=== PATIENT | male | born 1965 | race Caucasian/White ===

== ENCOUNTER 2021-09-15 09:02 | Observation (INO) ==
[2021-09-15] MEDS ORDERED: SODIUM CHLORIDE 0.9% 1000ML 1,000 ML IV SCH (09:15)
[2021-09-15] MEDS ORDERED: MoRPHine SULFATE 10 MG/ML CARP/VIAL IV STA ×2 (09:17→12:01)
[2021-09-15] MEDS ORDERED: ONDANSETRON INJ 2 MG/ML 2 ML VIAL IV STA (09:17)
--- NOTE | 2021-09-15 09:32 | Emergency Department Note ---
Impression & Plan Acute cholecystitis, Abdominal pain, epigastric, Nausea & vomiting ED Provider Note CHIEF COMPLAINT: Epigastric abdominal pain HISTORY OF PRESENT ILLNESS: Allen Bonilla Jr. is a 55 year old male with history of dyslipidemia who presents to the Emergency Department via EMS for evaluation of persistent sharp pains to his epigastric region which he developed suddenly while he was laying in bed at 0600 this morning. Upon developing the pain, the patient became nauseous and dry heaved several times. The patient's drove him to [facility] but he states that they had to machine puller over on the way there so that he could vomit. While at [facility], the patient continued with severe pain and was very diaphoretic. At that time, his blood pressure was noted to be elevated in the 190s and as they were concerned about his symptoms, EMS was called and brought him to the ED for further evaluation. En route, IV access was established and they patient was given Toradol 15 mg and Zofran 4 mg with little improvement of his symptoms. Currently, he still notes moderate discomfort, though nothing seems to make his symptoms worse. When the patient initially developed the pain, he did note radiation into his back and neck, however this has since improved. He otherwise denies fevers, sore throat, chest pain, palpitations, shortness of breath or dyspnea. He did not have abdominal pain, nausea or vomiting prior to the time of onset today. He has been moving his bowels and urinating normally. The patient did eat Maori food that was only 2 days old yesterday but otherwise denies eating any abnormal/spoiled food. He denies experiencing similar symptoms in the past. He does not have any surgical history. REVIEW OF SYSTEMS: 10 systems were reviewed and were negative unless otherwise stated in HPI as above PHYSICAL EXAM: VITALS: Vitals are noted on the nurse's note and reviewed by myself. Hype rtensive, additional vital signs stable General: Sitting at the edge of the bed, appears very uncomfortable, complaining of abdominal pain HEENT: Normocephalic, PERRL, EOMI, mucous membranes moist, oropharynx clear Neck: Supple, no lymphadenopathy, non-tender, ROM intact without pain Resp: Good inspiratory effort on room air, lung sounds clear bilaterally, chest wall non-tender to palpation CV: Regular rate and rhythm, normal S1-S2, peripheral pulses palpated Back: Non-tender to palpation Abd: Soft, non-distended, notes pain to the epigastric region but not elicited to palpation. No tenderness to palpation about the RUQ, LUQ, LLQ or RLQ. No rebound, guarding or rigidity MSK: Moving all extremities without apparent pain or difficulty Integumentary: Mildly diaphoretic, no appreciable rash Neuro: Awake, alert and oriented x 3, interacting and answering questions appropriately Differential diagnosis includes cardiac ischemia, aortic dissection, pulmonary embolism, pneumonia, pericarditis, myocarditis, esophageal rupture, GERD, appendicitis, diverticulitis, obstruction, inflammatory bowel disease, PUD, biliary pathology, pancreatitis, mesenteric ischemia, infections, perforated viscus, as well as other pathologies. EMERGENCY DEPARTMENT COURSE: Physical exam and history were performed. Nursing triage notes, EMR, and medication list were personally reviewed. Patient appears to have persistent sharp pain to his epigastric region which she developed suddenly while he was lying in bed at 600 this morning. He has associated nausea and vomiting. Additional history as described above. See physical exam as noted above. Continuous civil engineering assistant: Order was placed for continuous civil engineering assistant. Patient was placed on the civil engineering assistant. Patient was noted to be in normal sinus rhythm at an initial rate of 69 bpm. EKG was obtained and reviewed by myself. This did show normal sinus rhythm at 62 bpm. No ectopy or concern for acute ischemic change. When compared to study from 05/21/2018, no significant change was found. IV access was already established and he was given Toradol 15 mg and Zofran 4 mg via EMS in route. He was given an additional morphine 6 mg IV x2, Zofran 4 mg IV, Reglan 5 mg and 1 L NSS throughout his emergency department course. Labs were obtained and reviewed by myself as below. Of note, no concern for leukocytosis with a WBC of 5.32. No concern for anemia with hemoglobin 15.6. Coagulation studies WNL. Electrolytes not significantly out of range. Renal indices stable. LFTs within normal range. High-sensitivity troponin I not elevated at 4.5. The patient was tested for COVID19, this was positive. Influenza A/B and RSV negative. Chest x-ray was obtained and reviewed by radiologist myself as below. This was negative for acute cardiopulmonary process. CTA chest and CAT scan of the abdomen/pelvis were also obtained. Imaging did show a distended gallbladder with trace pericholecystic stranding suggestive of acute cholecystitis. A right upper quadrant ultrasound was also obtained and showed gallbladder distention with cholelithiasis, also suspicious for acute cholecystitis. Upon reevaluation, the patient was feeling improved after receiving the medications, however he was still having some pain and feeling nauseous. I discussed the results of the above findings with him at bedside. I then discussed his case with Gagan Powell PA-C of [facility]. After their evaluation at bedside, their plan is to likely take him to the operating room for intervention this evening. Please see their documentation for additional plan of care and disposition. The patient verbalizes understanding and agreement with the treatment plan as above The chart was completed utilizing [employer] Voice Recognition Software. Grammatical errors, random word insertions, pronoun errors, and incomplete sentences are an occasional consequence of this system due to software limitations, ambient noise, and hardware issues. Any formal questions or concerns about the content, text, or information contained within the body of this dictation should be directly addressed to the provider for clarification. Past Med/Surg History Medical History Dyslipidemia Gout Obesity Surgical History No significant past surgical history Social History Smoking Status: Former smoker Hx Alcohol Use: Yes Hx Substance Use: No marital status: Current Living Situation: Spouse Feels Safe at Home: Yes Allergies Allergies Allergy/AdvReac Type Severity Reaction Status Date / Time No Known Allergies Allergy Unverified 09/15/21 15:44 Home Meds Home Medications Medication Instructions Recorded Confirmed allopurinol 100 mg tablet 100 mg PO DAILY 05/21/18 09/15/21 atorvastatin 40 mg tablet 40 mg PO DAILY 09/15/21 09/15/21 Results & Data (ED) Vital Signs Vital Signs - 24 hr 09/15/21 09:09 09/15/21 09:35 09/15/21 11:39 Temperature Temperature Source Pulse Rate 69 Pulse Rate [Finger] 96 H 53 L Pulse Rhythm [Finger] Pulse Strength [Finger] Respiratory Rate 20 18 18 Respiratory Effort / Characteristics Respiratory Depth Respiratory Pattern Blood Pressure 169/114 H Blood Pressure [Left Arm] 145/95 H 134/83 Blood Pressure Mean 132 Blood Pressure Mean [Left Arm] 111 100 Blood Pressure Position Lying Blood Pressure Position [Left Arm] Pulse Oximetry 95 96 95 Oxygen Delivery Method Room Air Room Air Sepsis Recent Fever Within 48 Hours No Sepsis New/Unexplained Change in Mental Status N/A Sepsis Action Taken by Nursing No Action Required 09/15/21 13:12 09/15/21 15:09 09/15/21 15:45 Temperature 36.5 C Temperature Source Oral Pulse Rate Pulse Rate [Finger] 76 54 L 59 L Pulse Rhythm [Finger] Regular Regular Pulse Strength [Finger] Normal Respiratory Rate 16 16 17 Respiratory Effort / Characteristics Non-Labored Spontaneous Respiratory Depth Normal Normal Respiratory Pattern Regular Blood Pressure Blood Pressure [Left Arm] 122/76 142/97 H 159/105 H Blood Pressure Mean Blood Pressure Mean [Left Arm] 91 112 123 Blood Pressure Position Blood Pressure Position [Left Arm] Sitting Pulse Oximetry 95 96 94 Oxygen Delivery Method Room Air Room Air Sepsis Recent Fever Within 48 Hours Sepsis New/Unexplained Change in Mental Status Sepsis Action Taken by Nursing 09/15/21 16:25 Temperature Temperature Source Pulse Rate 54 L Pulse Rate [Finger] Pulse Rhythm [Finger] Pulse Strength [Finger] Respiratory Rate 16 Respiratory Effort / Characteristics Respiratory Depth Respiratory Pattern Blood Pressure 150/100 H Blood Pressure [Left Arm] Blood Pressure Mean Blood Pressure Mean [Left Arm] Blood Pressure Position Blood Pressure Position [Left Arm] Pulse Oximetry 96 Oxygen Delivery Method Room Air Sepsis Recent Fever Within 48 Hours Sepsis New/Unexplained Change in Mental Status Sepsis Action Taken by Nursing Laboratory Data Result diagrams: 09/15/21 09:20 09/15/21 09:20 Lab Results 09/15/21 09/15/21 09/15/21 Range/Units 09:20 09:20 09:20 WBC 5.32 (4.8-10.8) K/ul RBC 5.18 (4.63-6.08) M/uL Hgb 15.6 (14.0-18.0) g/dl Hct 46.3 (40.1-51.0) % MCV 89.4 (80.0-100.0) fL MCH 30.1 (25.0-34.0) pg MCHC 33.7 (32.0-36.0) g/dL RDW Std Deviation 40.5 (36.4-46.3) fL RDW Coeff of Yun 12.3 (11.5-14.5) % Plt Count 237 (130-400) K/uL MPV 9.2 L (9.4-12.4) fL Immature Gran % (Auto) 0.4 % Neut % (Auto) 62.2 % Lymph % (Auto) 23.3 % Eddy % (Auto) 8.8 % Eos % (Auto) 4.5 % Baso % (Auto) 0.8 % Neut # (Auto) 3.31 (1.4-6.5) K/uL Lymph # (Auto) 1.24 (1.2-3.4) K/uL Eddy # (Auto) 0.47 (0.24-0.82) K/uL Eos # (Auto) 0.24 (0-0.50) K/uL Baso # (Auto) 0.04 (0-0.2) K/uL Immature Gran # (Auto) 0.02 (0.00-0.02) K/uL PT 10.7 (9.0-12.0) Seconds INR 1.0 (0.9-1.1) APTT 28.6 (21.0-31.0) Seconds PTT Ratio 1.0 Sodium 141 (136-145) mmol/L Potassium 3.9 (3.5-5.1) mmol/L Chloride 110 H (98-107) mmol/L Carbon Dioxide 23 (21-32) mmol/L Anion Gap 8 (3-11) BUN 14 (6-23) mg/dl Creatinine 0.72 (0.6-1.4) mg/dl Est Cr Clr Drug Dosing 150.7 ml/min Est GFR ( Amer) 123.4 ml/min Est GFR (Non-Af Amer) 106.5 ml/min BUN/Creatinine Ratio 19.4 (10-20) Glucose 136 H (70-99(Fasting)) mg/dl Calcium 9.0 (8.5-10.1) mg/dl Total Bilirubin 0.4 (0.2-1.0) mg/dl AST 18 (13-39) U/L ALT 29 (7-52) U/L Alkaline Phosphatase 33 L (34-104) U/L Troponin I High Sens 4.5 (0-20) pg/ml Total Protein 7.0 (6.0-8.3) gm/dl Albumin 4.2 (3.4-5.0) gm/dl Globulin 2.8 (2.5-4.0) gm/dl Albumin/Globulin Ratio 1.5 (0.9-2) Lipase 22 (11-82) U/L SARS-CoV-2 (PCR) (Negative) Influenza Type A (PCR) (Neg) Influenza Type B (PCR) (Neg) RSV (RT-PCR) (Neg) 09/15/21 Range/Units 09:39 WBC (4.8-10.8) K/ul RBC (4.63-6.08) M/uL Hgb (14.0-18.0) g/dl Hct (40.1-51.0) % MCV (80.0-100.0) fL MCH (25.0-34.0) pg MCHC (32.0-36.0) g/dL RDW Std Deviation (36.4-46.3) fL RDW Coeff of Yun (11.5-14.5) % Plt Count (130-400) K/uL MPV (9.4-12.4) fL Immature Gran % (Auto) % Neut % (Auto) % Lymph % (Auto) % Eddy % (Auto) % Eos % (Auto) % Baso % (Auto) % Neut # (Auto) (1.4-6.5) K/uL Lymph # (Auto) (1.2-3.4) K/uL Eddy # (Auto) (0.24-0.82) K/uL Eos # (Auto) (0-0.50) K/uL Baso # (Auto) (0-0.2) K/uL Immature Gran # (Auto) (0.00-0.02) K/uL PT (9.0-12.0) Seconds INR (0.9-1.1) APTT (21.0-31.0) Seconds PTT Ratio Sodium (136-145) mmol/L Potassium (3.5-5.1) mmol/L Chloride (98-107) mmol/L Carbon Dioxide (21-32) mmol/L Anion Gap (3-11) BUN (6-23) mg/dl Creatinine (0.6-1.4) mg/dl Est Cr Clr Drug Dosing ml/min Est GFR ( Amer) ml/min Est GFR (Non-Af Amer) ml/min BUN/Creatinine Ratio (10-20) Glucose (70-99(Fasting)) mg/dl Calcium (8.5-10.1) mg/dl Total Bilirubin (0.2-1.0) mg/dl AST (13-39) U/L ALT (7-52) U/L Alkaline Phosphatase (34-104) U/L Troponin I High Sens (0-20) pg/ml Total Protein (6.0-8.3) gm/dl Albumin (3.4-5.0) gm/dl Globulin (2.5-4.0) gm/dl Albumin/Globulin Ratio (0.9-2) Lipase (11-82) U/L SARS-CoV-2 (PCR) POSITIVE A* (Negative) Influenza Type A (PCR) Negative (Neg) Influenza Type B (PCR) Negative (Neg) RSV (RT-PCR) Negative (Neg) Administered Medications Discontinued Medications Sodium Chloride (Nss 1000ml) 1,000 mls @ 999 mls/hr IV .Q1H1M DELPHINE Stop: 09/15/21 10:15 Last Infusion: 09/15/21 10:32 Dose: 0 mls/hr Documented By: Admin: 09/15/21 09:45 Dose: 999 mls/hr Documented By: EMANI Ioversol (Optiray 320 125ml) 120 ml IV ONCE ONE Stop: 09/15/21 10:47 Last Admin: 09/15/21 10:47 Dose: 120 ml Documented By: DELVIN Metoclopramide HCl (Metoclopramide Hcl Inj 5 Mg/Ml 2 Ml Vial) 5 mg IV ONE ONE Stop: 09/15/21 12:02 Last Admin: 09/15/21 12:38 Dose: 5 mg Documented By: ANG Morphine Sulfate (Morphine Sulfate 10 Mg/Ml Carp/Vial) 6 mg IV NOW STA Stop: 09/15/21 09:18 Last Admin: 09/15/21 09:45 Dose: 6 mg Documented By: EMANI Morphine Sulfate (Morphine Sulfate 10 Mg/Ml Carp/Vial) 6 mg IV NOW STA Stop: 09/15/21 12:02 Last Admin: 09/15/21 12:37 Dose: 6 mg Documented By: ANG Ondansetron HCl (Ondansetron Inj 2 Mg/Ml 2 Ml Vial) 4 mg IV NOW STA Stop: 09/15/21 09:18 Last Admin: 09/15/21 09:45 Dose: 4 mg Documented By: EMANI Imaging Data Radiologist's Impression: Chest X-Ray 09/15/21 09:14 XR chest 1V portable CLINICAL HISTORY: severe epigastric pain, htn COMPARISON STUDY: Chest radiograph May 21, 2018. FINDINGS: Lung volumes are normal. Lungs are clear. There is no pneumothorax or pleural effusion. Cardiac size is normal. Mediastinal contours are normal. There is no evidence for pulmonary edema. IMPRESSION: No acute cardiopulmonary findings. ACT 112: Negative or not required by law. Electronically signed by: Fransico Lozano M.D. 09/15/2021 10:26 AM Abdomen/Pelvis CT 09/15/21 09:19 CT OF THE ABDOMEN AND PELVIS WITH CONTRAST CLINICAL HISTORY: Severe epigastric pain. COMPARISON STUDY: None. TECHNIQUE: Following IV administration of 120 mL of Optiray, axial images of the abdomen and pelvis were obtained from the lung bases to the proximal femurs. Images were reviewed in the axial, sagittal, and coronal planes. IV contrast was administered without complication. Automated exposure control was utilized for the study. A dose lowering technique was utilized adhering to the principles of ALARA. CT DOSE: 1777.67 mGy.cm FINDINGS: Please note that the chest CT will be reported separately. No pneumatosis, free air or portal venous gas is present. No hepatic lesions are present. No biliary or pancreatic ductal dilatation is present. The spleen, adrenal glands, right kidney and pancreas are normal. A 3.3 cm left renal cyst is noted. A few subcentimeter left renal lesions are too small to characterize. There is no hydronephrosis. Gallbladder is moderately distended. There is trace pericholecystic stranding which extends into the anel hepatis. No evidence for a bowel obstruction. The appendix is normal. Note is made of colonic div erticulosis without evidence for acute diverticulitis. There is no lymphadenopathy or ascites. Fat-containing left inguinal hernia is present. Prostatic calcifications are incidentally noted. IMPRESSION: 1. Distended gallbladder with trace pericholecystic stranding. These findings are suggestive of acute cholecystitis. A right upper quadrant ultrasound could be obtained for further evaluation. 2. Colonic diverticulosis with evidence for acute diverticulitis. 3. No bowel obstruction. No bowel wall thickening. 4. Fat-containing left inguinal hernia. ACT 112: Negative or not required by law. Electronically signed by: Fransico Lozano M.D. 09/15/2021 11:08 AM Chest CTA 09/15/21 09:19 CHEST CTA for PULMONARY ARTERIES CT DOSE: HISTORY: Severe epigastric pain. Assess for pulmonary embolus. TECHNIQUE: Multiaxial CT images of the chest were performed following the intravenous administration of contrast to evaluate the pulmonary arteries. Maximal intensity projection images were also obtained. A dose lowering technique was utilized adhering to the principles of ALARA. COMPARISON STUDY: None. FINDINGS: Please refer to the same day abdomen and pelvis CT for further evaluation of the abdominal structures. A small hiatus hernia. No pleural or p ericardial effusions. The heart is normal in size. Normal thyroid gland. Normal caliber esophagus. No mediastinal or hilar lymphadenopathy. Normal caliber thoracic aorta with no evidence for dissection. No filling defects within the pulmonary arteries to suggest a pulmonary embolus. No fractures within the visualized osseous structures. No pneumothorax. There is a punctate calcified granuloma within the left lung apex. Mild narrowing of the proximal right middle lobe bronchus. No obstructing lesions identified. There is mild diffuse central bronchial wall thickening. Mild nodular thickening along the left major fissure on image 152. This is likely benign. There is a 3 mm nodule within the left lower lobe on image 152. A 3 mm nodule within the right middle lobe on image 143. No focal lung consolidations to suggest pneumonia. IMPRESSION: 1. No evidence for pulmonary embolus. 2. Mild central bronchial wall thickening. This is nonspecific but could represent a mild bronchitis. 3. Mild narrowing of the right middle lobe bronchus. No obstructing lesions identified. 4. A total of two 3 mm indeterminate pulmonary nodules as described above. Follow-up recommended as detailed below. Please refer to below summary of Fleischner criteria recommendations for follow- up of incidental CT nodules (Berna Simental, Guidelines for management of small pulmonary nodules detected on CT scans: A statement from the Fleischner Society, Radiology 237: [phone].) SOLID NODULES Solitary nodule size: <6 mm * Low risk patients: no follow-up needed * high risk patients: optional CT at 12 months Solitary nodule size: 6-8 mm * Low risk patients: follow-up at 6-12 months, then consider further follow-up at 18-24 months * high risk patients: initial follow-up CT at 6-12 months and then at 18-24 months if no change Solitary nodule size: >8 mm * either low or high risk patients - consider follow-up CT at 3 months, and/or CT-PET, and/or biopsy Multiple nodules size: <6 mm * Low risk patients: no routine follow-up * high risk patients: optional CT at 12 months Multiple nodules size: 6-8 mm * Low risk patients: follow-up at 3-6 months, then consider further follow-up at 18-24 months * high risk patients: follow-up at 3-6 months, then at 18-24 months if no change Multiple nodules size: >8 mm * Low risk patients: follow-up at 3-6 months, then consider further follow-up at 18-24 months * high risk patients: follow-up at 3-6 months, then at 18-24 months if no change Note: newly detected indeterminate nodule in persons 35 years of age or older. * Low risk patients: minimal or absent history of smoking and/or other known risk factors * high risk patients: history of smoking or of other known risk factors (e.g. first degree relative with lung cancer, or exposure to asbestos, radon, uranium) * if a nodule up to 8 mm is partly solid or is ground glass further follow-up is required after 24 months to exclude possible slow growing adenocarcinoma (PATRICIA) SUBSOLID NODULES Solitary pure ground-glass nodule * nodule size <6 mm - no CT follow-up required * nodule size >=6 mm - follow-up CT at 6-12 months, then every 2 years until 5 years Solitary part-solid nodule * nodule size <6 mm - no CT follow-up required * nodule size >=6 mm - follow-up CT at 3-6 months. If unchanged, and solid component remains <6 mm, then annual follow-up for 5 years Multiple subsolid nodules * nodule size <6 mm - follow-up CT at 3-6 months, consider further follow-up at 2 and 4 years if stable * nodule size >=6 mm - follow-up CT at 3-6 months, subsequent management based on the most suspicious nodule(s) ACT 112: Negative or not required by law. Electronically signed by: Eugene Reyes M.D. 09/15/2021 11:29 AM Gallbladder Ultrasound 09/15/21 11:51 US gallbladder HISTORY: 55 years-old Male acute cholecystitis on CT acute right upper quadrant abdominal pain COMPARISON: CT abdomen pelvis 09/15/2021 TECHNIQUE: Multiple real time sonographic images of the abdominal right upper quadrant were obtained assessing grayscale appearance and color flow FINDINGS: The visualized pancreas is unremarkable. Increased echogenicity of the liver suggests hepatic steatosis. The liver measures 21 cm in length. No hepatic mass identified. There is an 8 mm stone within the gallbladder neck. The gallbladder is distended with the wall measuring in the upper limits of normal at 3 mm. Negative sonographic Toussaint's sign. No definitive pericholecystic fluid identified. Possible adenomyomatosis of the gallbladder. Common bile duct, 6 mm. Imaged right kidney without hydronephrosis. IMPRESSION: 1. Gallbladder distention with cholelithiasis. The gallbladder wall measures within the upper limits of normal, however there is no appreciable pericholecystic fluid and the sonographic Toussaint sign was reported as negative. Considering the mild pericholecystic inflammatory stranding seen on the CT study of same day, these findings are suspicious for acute cholecystitis. 2.No biliary ductal dilation. ACT 112: Negative or not required by law. The above report was generated using voice recognition software. It may contain grammatical, syntax or spelling errors. Electronically signed by: Higinio Majano M.D. 09/15/2021 1:03 PM Discharge Plan Visit Data Chief Complaint: GI Assessment Stated Complaint: AB PAIN ED Provider: Félix Silva ED Midlevel Provider: Emily Mcclellan Discharge Problem: Acute cholecystitis, Abdominal pain, epigastric, Nausea & vomiting Patient Disposition: Admitted As Inpatient Discharge Instructions Interventions: ED Discharge Assessment Last Done: 09/15/21 16:25
[2021-09-15 09:38] LABS: Basophils # (auto) 0.04 K/uL (0-0.2); Basophils % (auto) 0.8 %; Eosinophils # (auto) 0.24 K/uL (0-0.50); Eosinophils % (auto) 4.5 %; Hematocrit (blood only) 46.3 % (40.1-51.0); Hemoglobin 15.6 g/dl (14.0-18.0); Immature Granulocytes # (auto) 0.02 K/uL (0.00-0.02); Immature Granulocytes % (auto) 0.4 %; Lymphocytes # (auto) 1.24 K/uL (1.2-3.4); Lymphocytes % (auto) 23.3 %; Mean Corpuscular Hemoglobin 30.1 pg (25.0-34.0); Mean Corpuscular Hgb Conc 33.7 g/dL (32.0-36.0); Mean Corpuscular Volume 89.4 fL (80.0-100.0); Mean Platelet Volume 9.2 fL (9.4-12.4); Monocytes # (auto) 0.47 K/uL (0.24-0.82); Monocytes % (auto) 8.8 %; Neutrophils # (auto) 3.31 K/uL (1.4-6.5); Neutrophils % (auto) 62.2 %; Platelet Count 237 K/uL (130-400); RDW Coefficient of Variation 12.3 % (11.5-14.5); RDW Standard Deviation 40.5 fL (36.4-46.3); Red Blood Count 5.18 M/uL (4.63-6.08); White Blood Count 5.32 K/ul (4.8-10.8)
[2021-09-15 09:56] LABS: Partial Thromboplastin Time 28.6 Seconds (21.0-31.0); Prothrombin Time 10.7 Seconds (9.0-12.0)
[2021-09-15 10:05] LABS: Troponin I High Sensitivity 4.5 pg/ml (0-20)
[2021-09-15 10:11] LABS: Albumin Globulin Ratio 1.5 (0.9-2); Albumin Level 4.2 gm/dl (3.4-5.0); BUN Creatinine Ratio 19.4 (10-20); Bilirubin,Total 0.4 mg/dl (0.2-1.0); Creatinine Clr Calc Pharmacy 150.7 ml/min; Est GFR (African American) 123.4 ml/min; Est GFR (Non-African American) 106.5 ml/min; Globulin 2.8 gm/dl (2.5-4.0); Potassium 3.9 mmol/L (3.5-5.1)
--- NOTE | 2021-09-15 10:28 | XRay Report ---
XR chest 1V portable CLINICAL HISTORY: severe epigastric pain, htn COMPARISON STUDY: Chest radiograph May 21, 2018. FINDINGS: Lung volumes are normal. Lungs are clear. There is no pneumothorax or pleural effusion. Car diac size is normal. Mediastinal contours are normal. There is no evidence for pulmonary edema. IMPRESSION: No acute cardiopulmonary findings. ACT 112: Negative or not required by law. Electronically signed by: Fransico Lozano M.D. 09/15/2021 10:26 AM
[2021-09-15 10:31] LABS: Influenza A virus by PCR Negative (Neg); Influenza B virus by PCR Negative (Neg); RSV by PCR Negative (Neg)
[2021-09-15] MEDS ORDERED: OPTIRAY 320 125ml IV ONE (10:46)
[2021-09-15 11:09] LABS: SARS CoV2 RNA(COVID-19) InHosp POSITIVE (Negative)
--- NOTE | 2021-09-15 11:10 | CT Scan Report ---
CT OF THE ABDOMEN AND PELVIS WITH CONTRAST CLINICAL HISTORY: Severe epigastric pain. COMPARISON STUDY: None. TECHNIQUE: Following IV administration of 120 mL of Optiray, axial images of the abdomen and pelvis w ere obtained from the lung bases to the proximal femurs. Images were reviewed in the axial, sagittal, and coronal planes. IV contrast was administered without complication. Automated exposure control w as utilized for the study. A dose lowering technique was utilized adhering to the principles of ARTEM [place]. CT DOSE: 1777.67 mGy.cm FINDINGS: Please note that the chest CT will be reported separately. No pneumatosis, free air or port al venous gas is present. No hepatic lesions are present. No biliary or pancreatic ductal dilatation is present. The spleen, adrenal glands, right kidney and pancreas are normal. A 3.3 cm left renal cys t is noted. A few subcentimeter left renal lesions are too small to characterize. There is no hydrone phrosis. Gallbladder is moderately distended. There is trace pericholecystic stranding which extends into the anel hepatis. No evidence for a bowel obstruction. The appendix is normal. Note is made of colonic diverticulosis without evidence for acute diverticulitis. There is no lymphadenopathy or asci osmani. Fat-containing left inguinal hernia is present. Prostatic calcifications are incidentally noted. IMPRESSION: 1. Distended gallbladder with trace pericholecystic stranding. These findings are suggestive of acute cholecystitis. A right upper quadrant ultrasound could be obtained for further evaluation. 2. Colonic diverticulosis with evidence for acute diverticulitis. 3. No bowel obstruction. No bowel wall thickening. 4. Fat-containing left inguinal hernia. ACT 112: Negative or not required by law. Electronically signed by: Fransico Lozano M.D. 09/15/2021 11:08 AM
--- NOTE | 2021-09-15 11:31 | CT Scan Report ---
CHEST CTA for PULMONARY ARTERIES CT DOSE: HISTORY: Severe epigastric pain. Assess for pulmonary embolus. TECHNIQUE: Multiaxial CT images of the chest were performed following the intravenous administration of contrast to evaluate the pulmonary arteries. Maximal intensity projection images were also obtaine d. A dose lowering technique was utilized adhering to the principles of ALARA. COMPARISON STUDY: None. FINDINGS: Please refer to the same day abdomen and pelvis CT for further evaluation of the abdominal structures. A small hiatus hernia. No pleural or pericardial effusions. The heart is normal in size. Normal thyroid gland. Normal caliber esophagus. No mediastinal or hilar lymphadenopathy. Normal calib er thoracic aorta with no evidence for dissection. No filling defects within the pulmonary arteries t o suggest a pulmonary embolus. No fractures within the visualized osseous structures. No pneumothorax . There is a punctate calcified granuloma within the left lung apex. Mild narrowing of the proximal r ight middle lobe bronchus. No obstructing lesions identified. There is mild diffuse central bronchial wall thickening. Mild nodular thickening along the left major fissure on image 152. This is likely b enign. There is a 3 mm nodule within the left lower lobe on image 152. A 3 mm nodule within the right middle lobe on image 143. No focal lung consolidations to suggest pneumonia. IMPRESSION: 1. No evidence for pulmonary embolus. 2. Mild central bronchial wall thickening. This is nonspecific but could represent a mild bronchitis. 3. Mild narrowing of the right middle lobe bronchus. No obstructing lesions identified. 4. A total of two 3 mm indeterminate pulmonary nodules as described above. Follow-up recommended as d etailed below. Please refer to below summary of Fleischner criteria recommendations for follow-up of incidental CT n odules (Berna Simental, Guidelines for management of small pulmonary nodules detected on CT scans: A sta tement from the Fleischner Society, Radiology 237: [phone].) SOLID NODULES Solitary nodule size: <6 mm * Low risk patients: no follow-up needed * high risk patients: optional CT at 12 months Solitary nodule size: 6-8 mm * Low risk patients: follow-up at 6-12 months, then consider further follow-up at 18-24 months * high risk patients: initial follow-up CT at 6-12 months and then at 18-24 months if no change Solitary nodule size: >8 mm * either low or high risk patients - consider follow-up CT at 3 months, and/or CT-PET, and/or biopsy Multiple nodules size: <6 mm * Low risk patients: no routine follow-up * high risk patients: optional CT at 12 months Multiple nodules size: 6-8 mm * Low risk patients: follow-up at 3-6 months, then consider further follow-up at 18-24 months * high risk patients: follow-up at 3-6 months, then at 18-24 months if no change Multiple nodules size: >8 mm * Low risk patients: follow-up at 3-6 months, then consider further follow-up at 18-24 months * high risk patients: follow-up at 3-6 months, then at 18-24 months if no change Note: newly detected indeterminate nodule in persons 35 years of age or older. * Low risk patients: minimal or absent history of smoking and/or other known risk factors * high risk patients: history of smoking or of other known risk factors (e.g. first degree relative with lung cancer, or exposure to asbestos, radon, uranium) * if a nodule up to 8 mm is partly solid or is ground glass further follow-up is required after 24 m onths to exclude possible slow growing adenocarcinoma (PATRICIA) SUBSOLID NODULES Solitary pure ground-glass nodule * nodule size <6 mm - no CT follow-up required * nodule size >=6 mm - follow-up CT at 6-12 months, then every 2 years until 5 years Solitary part-solid nodule * nodule size <6 mm - no CT follow-up required * nodule size >=6 mm - follow-up CT at 3-6 months. If unchanged, and solid component remains <6 mm, then annual follow-up for 5 years Multiple subsolid nodules * nodule size <6 mm - follow-up CT at 3-6 months, consider further follow-up at 2 and 4 years if sta ble * nodule size >=6 mm - follow-up CT at 3-6 months, subsequent management based on the most suspiciou s nodule(s) ACT 112: Negative or not required by law. Electronically signed by: Eugene Reyes M.D. 09/15/2021 11:29 AM
[2021-09-15] MEDS ORDERED: METOCLOPRAMIDE HCL INJ 5 MG/ML 2 ML VIAL IV ONE (12:01)
--- NOTE | 2021-09-15 13:05 | Ultrasound Report ---
US gallbladder HISTORY: 55 years-old Male acute cholecystitis on CT acute right upper quadrant abdominal pain COMPARISON: CT abdomen pelvis 09/15/2021 TECHNIQUE: Multiple real time sonographic images of the abdominal right upper quadrant were obtained assessing grayscale appearance and color flow FINDINGS: The visualized pancreas is unremarkable. Increased echogenicity of the liver suggests hepatic steatos is. The liver measures 21 cm in length. No hepatic mass identified. There is an 8 mm stone within the gallbladder neck. The gallbladder is distended with the wall measuring in the upper limits of normal at 3 mm. Negative sonographic Toussaint's sign. No definitive pericholecystic fluid identified. Possibl e adenomyomatosis of the gallbladder. Common bile duct, 6 mm. Imaged right kidney without hydronephrosis. IMPRESSION: 1. Gallbladder distention with cholelithiasis. The gallbladder wall measures within the upper limits of normal, however there is no appreciable pericholecystic fluid and the sonographic Toussaint sign was reported as negative. Considering the mild pericholecystic inflammatory stranding seen on the CT stud y of same day, these findings are suspicious for acute cholecystitis. 2.No biliary ductal dilation. ACT 112: Negative or not required by law. The above report was generated using voice recognition software. It may contain grammatical, syntax o r spelling errors. Electronically signed by: Higinio Majano M.D. 09/15/2021 1:03 PM
--- NOTE | 2021-09-15 15:35 | History & Physical Report ---
Date of Service September 15, 2021 Assessment & Plan (1) Acute cholecystitis: Plan: Has stone in neck of gallbladder with persistent symptoms and early acute cholecystitis on CT. Will plan for laparoscopic cholecystectomy this evening. as above. discussed risks/options ( bleeding, infection, bile duct leaks or injury, injury to other organs, dvt/pe, mi, cva etc... questions answered. pt agreeable. will proceed tonight with lap manny History of Present Illness Primary Care Provider: Grant Jesus MD 55 y/o male had pasta with jocelyn sauce last night and woke up this morning with severe RUQ pain and N/V. Was brought to ER by EMS. Has been given 12 mg morphine, continues to have some RUQ pain. Screening for COVID was positive although he has been asymptomatic. Allergies Allergy/AdvReac Type Severity Reaction Status Date / Time No Known Allergies Allergy Unverified 09/15/21 15:44 Home Medications Medication Instructions Recorded Confirmed Type allopurinol 100 mg tablet 100 mg PO DAILY 05/21/18 09/15/21 History atorvastatin 40 mg tablet 40 mg PO DAILY 09/15/21 09/15/21 History Past Med/Surg History Medical History (Updated 09/15/21 @ 15:59 by Eugene Jenkins MD) Gout Obesity Surgical History No significant past surgical history Social History Smoking Status: Former smoker Hx Alcohol Use: Yes Hx Substance Use: No marital status: Current Living Situation: Spouse Feels Safe at Home: Yes Review of Systems Constitutional: no fever and no chills Respiratory: no cough, no chest congestion and no dyspnea Cardiovascular: no chest pain Gastrointestinal: + abdominal pain, + bloating, + nausea and + vomiting Physical Exam Constitutional: WD/WN, vitals as above Respiratory: normal respiratory effort, lungs clear to auscultation Cardiovascular: RRR, no murmur, no edema Gastrointestinal (Abdomen): Inspection/Auscultation: abdomen not distended Percussion/Palpation: + abdomen tender (RUQ) and abdomen soft; no guarding Results & Data Results & Data ([facility]) Vital Signs (Past 12 Hours) Vital Signs Pulse Pulse Resp BP BP Pulse Ox O2 Del Method 09/15/21 15:09 54 L 16 142/97 H 96 Room Air 09/15/21 13:12 76 16 122/76 95 09/15/21 11:39 53 L 18 134/83 95 Room Air 09/15/21 09:35 96 H 18 145/95 H 96 Room Air 09/15/21 09:09 69 20 169/114 H 95 PG Care Time/CCT Total # of Minutes Spent Total Time Spent with Patient: Total time spent is greater than 50% in coordination of care (as documented) at patient's floor/unit and/or counseling patient: Coding Level of Care Code None Diagnoses Acute cholecystitis K81.0
[2021-09-15] MEDS ORDERED: ePHEDrine sulfate 50 MG/ML AMP IV PRN (15:41)
[2021-09-15] MEDS ORDERED: HYDROmorphone INJ 1 MG/ML SYRINGE IV PRN (15:41)
[2021-09-15] MEDS ORDERED: LABETALOL HCL IV 5 MG/ML 20ML IV PRN (15:41)
[2021-09-15] MEDS ORDERED: PHENYLEPHRINE 100MCG/ML 5ML SYR IV PRN (15:41)
[2021-09-15] MEDS ORDERED: ATROPINE SULFATE 0.1 MG/ML 10ML SYR IV PRN (15:41)
[2021-09-15] MEDS ORDERED: MEPERIDINE HCL 25 MG/ML CARP/VIAL IV PRN (15:41)
[2021-09-15] MEDS ORDERED: ONDANSETRON INJ 2 MG/ML 2 ML VIAL IV PRN (15:41)
[2021-09-15] MEDS ORDERED: GLYCOPYRROLATE 0.2 MG/ML VIAL ONE (15:43)
[2021-09-15] MEDS ORDERED: EPINEPHrine INJ 1 MG/ML AMP ONE (15:43)
[2021-09-15] MEDS ORDERED: NEOSTIGMINE METHYLSULFATE 1 MG/ML 10ML VIAL ONE (15:43)
[2021-09-15] MEDS ORDERED: PROPOFOL IV EMULSION 10 MG/ML 20 ML VIAL IV ONE (15:43)
[2021-09-15] MEDS ORDERED: ROCURONIUM BROMIDE 10 MG/ML 5 ML VIAL IV ONE ×4 (15:43)
[2021-09-15] MEDS ORDERED: BUPIVACAINE 0.5 % 5 MG/1 ML MPF 30ML VIAL ONE (15:43)
[2021-09-15] MEDS ORDERED: ONDANSETRON INJ 2 MG/ML 2 ML VIAL ONE (15:43)
[2021-09-15] MEDS ORDERED: DEXAMETHASONE SOD INJ 4 MG/ML VIAL ONE (15:43)
[2021-09-15] MEDS ORDERED: LIDOCAINE 2% MPF LOCAL 5 ML VIAL INFIL ONE (15:43)
--- NOTE | 2021-09-15 15:43 | Anesthesiology Consultation ---
Date of Service September 15, 2021 The patient is Covid 19 positive by testing today. Assessment & Plan (1) Encounter for pre-operative examination: Chart Review Chart Review: Acceptable Risk for Surgery (emergency surgery) and Patient NOT seen in Pre Admission Testing Consults Requested none History Surgery Operation Date: 09/15/21 07:00 Proposed Procedures p Laparoscopic Cholecystectomy - Oneal Cook, Height/Weight Height: 5 ft 10 in Weight: 115 kg Allergies Allergy/AdvReac Type Severity Reaction Status Date / Time No Known Allergies Allergy Unverified 09/15/21 15:44 Medications Home Medications Medication Instructions Recorded Confirmed Last Taken allopurinol 100 mg tablet 100 mg PO DAILY 05/21/18 05/21/18 Unknown atorvastatin 40 mg tablet 40 mg PO DAILY 09/15/21 09/15/21 Unknown Past Medical History Medical History Gout Past Surgical History Surgical History No significant past surgical history Social History Smoking Status: Former smoker Hx Alcohol Use: Yes Hx Substance Use: No Physical Exam Vital Signs Last Vital Signs Pulse 54 L 09/15/21 15:09 Resp 16 09/15/21 15:09 BP 142/97 H 09/15/21 15:09 Pulse Ox 96 09/15/21 15:09 O2 Del Method 09/15/21 15:09 Testing Laboratory Results 09/15/21 09:20 09/15/21 09:20 PT 10.7 Seconds (9.0-12.0) 09/15/21 09:20 INR 1.0 (0.9-1.1) 09/15/21 09:20 APTT 28.6 Seconds (21.0-31.0) 09/15/21 09:20 Electrocardiogram Date: 09/15/21 Findings: + NSR @ (62) Chest X-Ray Date: 09/15/21 XR chest 1V portable CLINICAL HISTORY: severe epigastric pain, htn COMPARISON STUDY: Chest radiograph May 21, 2018. FINDINGS: Lung volumes are normal. Lungs are clear. There is no pneumothorax or pleural effusion. Cardiac size is normal. Mediastinal contours are normal. There is no evidence for pulmonary edema. IMPRESSION: No acute cardiopulmonary findings. ACT 112: Negative or not required by law. Electronically signed by: Fransico Lozano M.D. 09/15/2021 10:26 AM Dictated:09/15/21 1026 Transcribed: 09/15/21 1026 Other Testing Covid 19 positive 09/15/21 CHEST CTA for PULMONARY ARTERIES CT DOSE: HISTORY: Severe epigastric pain. Assess for pulmonary embolus. TECHNIQUE: Multiaxial CT images of the chest were performed following the intravenous administration of contrast to evaluate the pulmonary arteries. Maximal intensity projection images were also obtained. A dose lowering technique was utilized adhering to the principles of ALARA. COMPARISON STUDY: None. FINDINGS: Please refer to the same day abdomen and pelvis CT for further evaluation of the abdominal structures. A small hiatus hernia. No pleural or pericardial effusions. The heart is normal in size. Normal thyroid gland. Normal caliber esophagus. No mediastinal or hilar lymphadenopathy. Normal caliber thoracic aorta with no evidence for dissection. No filling defects within the pulmonary arteries to suggest a pulmonary embolus. No fractures within the visualized osseous structures. No pneumothorax. There is a punctate calcified granuloma within the left lung apex. Mild narrowing of the proximal right middle lobe bronchus. No obstructing lesions identified. There is mild diffuse central bronchial wall thickening. Mild nodular thickening along the left major fissure on image 152. This is likely benign. There is a 3 mm nodule within the left lower lobe on image 152. A 3 mm nodule within the right middle lobe on image 143. No focal lung consolidations to suggest pneumonia. IMPRESSION: 1. No evidence for pulmonary embolus. 2. Mild central bronchial wall thickening. This is nonspecific but could represent a mild bronchitis. 3. Mild narrowing of the right middle lobe bronchus. No obstructing lesions identified. 4. A total of two 3 mm indeterminate pulmonary nodules as described above. Follow-up recommended as detailed below. Please refer to below summary of Fleischner criteria recommendations for follow- up of incidental CT nodules (Berna Simental, Guidelines for management of small pulmonary nodules detected on CT scans: A statement from the Fleischner Society, Radiology 237: [phone].) SOLID NODULES Solitary nodule size: <6 mm * Low risk patients: no follow-up needed * high risk patients: optional CT at 12 months Solitary nodule size: 6-8 mm * Low risk patients: follow-up at 6-12 months, then consider further follow-up at 18-24 months * high risk patients: initial follow-up CT at 6-12 months and then at 18-24 months if no change Solitary nodule size: >8 mm * either low or high risk patients - consider follow-up CT at 3 months, and/or CT-PET, and/or biopsy Multiple nodules size: <6 mm * Low risk patients: no routine follow-up * high risk patients: optional CT at 12 months Multiple nodules size: 6-8 mm * Low risk patients: follow-up at 3-6 months, then consider further follow-up at 18-24 months * high risk patients: follow-up at 3-6 months, then at 18-24 months if no change Multiple nodules size: >8 mm * Low risk patients: follow-up at 3-6 months, then consider further follow-up at 18-24 months * high risk patients: follow-up at 3-6 months, then at 18-24 months if no change Note: newly detected indeterminate nodule in persons 35 years of age or older. * Low risk patients: minimal or absent history of smoking and/or other known risk factors * high risk patients: history of smoking or of other known risk factors (e.g. first degree relative with lung cancer, or exposure to asbestos, radon, uranium) * if a nodule up to 8 mm is partly solid or is ground glass further follow-up is required after 24 months to exclude possible slow growing adenocarcinoma (PATRICIA) SUBSOLID NODULES Solitary pure ground-glass nodule * nodule size <6 mm - no CT follow-up required * nodule size >=6 mm - follow-up CT at 6-12 months, then every 2 years until 5 years Solitary part-solid nodule * nodule size <6 mm - no CT follow-up required * nodule size >=6 mm - follow-up CT at 3-6 months. If unchanged, and solid component remains <6 mm, then annual follow-up for 5 years Multiple subsolid nodules * nodule size <6 mm - follow-up CT at 3-6 months, consider further follow-up at 2 and 4 years if stable * nodule size >=6 mm - follow-up CT at 3-6 months, subsequent management based on the most suspicious nodule(s) ACT 112: Negative or not required by law. Electronically signed by: Eugene Reyes M.D. 09/15/2021 11:29 AM Dictated:09/15/21 1121
--- NOTE | 2021-09-15 15:46 | Emergency Department Note ---
ED Visit Note Physician Evaluation Note: Patient was seen in conjunction with the physician assistant account manager. Please see the physician assistant account manager note for full details of the visit. I have personally evaluated and examined this patient. I performed a substantive portion of the patient visit including medical decision making and interpretation of diagnostic studies. On my examination the patient is in no acute distress following several doses of morphine for abdominal pain. CT imaging shows evidence of acute cholecystitis. Patient states he is more comfortable following morphine however he was redosed here in the ED, he has had vomiting. Patient was assessed by general surgery here in the ED, patient will be admitted with plan for surgical intervention later this evening. Patient is in agreement to this plan. I agree with assessment and plan of LUISA Constantino DO .
[2021-09-15] MEDS ORDERED: KETOROLAC 30 MG/ML VIAL ONE (15:52)
[2021-09-15] MEDS ORDERED: fentaNYL citrate 100 MCG/2 ML VIAL ONE (15:52)
[2021-09-15] MEDS ORDERED: MIDAZOLAM HCL 1 MG/ML 2ML VIAL ONE (15:52)
--- NOTE | 2021-09-15 15:53 | Electrocardiogram Report ---
Test Reason : Blood Pressure : / mmHG Vent. Rate : 062 BPM Atrial Rate : 062 BPM P-R Int : 162 ms QRS Dur : 100 ms QT Int : 408 ms P-R-T Axes : 040 056 035 degrees QTc Int : 414 ms Normal sinus rhythm Normal ECG When compared with ECG of 21-MAY-2018 11:10, No significant change was found Confirmed by Chris Ross ([id number]) on 09/15/2021 3:53:35 PM Referred By: REFERRED SELF Confirmed By:Chris Ross
[2021-09-15] MEDS ORDERED: ceFAZolin 2,000 MG/15 ML IV PUSH IV ONE (16:33)
[2021-09-15] MEDS ORDERED: hydrALAZINE HCL 20 MG/ML VIAL ONE (17:28)
--- NOTE | 2021-09-15 18:10 | Operative Report ---
PG Post Operative Report Pre & Post Diagnosis Operation Date: 09/15/21 07:00 Pre-Op Diagnosis: acute cholecystitis;umbilical hernia Post-Op Diagnosis: acute cholecystitis;umbilical hernia I identified the patient and participated in the time-out.: Yes Procedure Operation Date: 09/15/21 07:00 Actual Procedures p Laparoscopic Cholecystectomy and Umbilical Hernia Repair(Not Applicable) - Oneal Cook DO Surgeon Oneal Cook DO Gaming Cage Worker orlando Grover Estimated Blood Loss 50 Findings Consistent with Post-Op Diagnosis Specimens gallbladder Description of Procedure After informed consent was obtained the patient was taken to the operating room and placed in supine position. After successful intubation the abdomen was shaved and sterilely prepped and draped in usual fashion. A curvilinear infraumbilical incision was made with an 11 blade scalpel. This was carried down through the soft tissue using cautery. A Rylee clamp was used to come around the superior aspect of the umbilicus. The umbilical stalk was detached exposing a 1 cm hernia defect. I excised the hernia sac entirely and discarded it. I extended this defect inferiorly for about another centimeter. 2-0 Vicryl stay sutures were placed. Peritoneum was entered using blunt finger penetration and a finger sweep was performed. A 12 mm Powell trocar was placed and the abdomen was insufflated to 20 mmHg. Laparoscope was inserted and the abdomen examined in 360 degrees. The patient was placed in reverse Trendelenburg position and slightly airplaned to the left. A subxiphoid 5 mm port and 2 right upper quadrant 5 mm ports were placed. The gallbladder was acutely inflamed with omentum stuck to it. We used small amounts of sharp scissor lysis as well as blunt dissection to take the omentum off the gallbladder. Eventually we were able to grasp the gallbladder and elevate it superiorly and laterally. A [place] dissector was used to take down adhesions around the neck of the gallbladder exposing the cystic duct. 2 clips were placed proximally 1 distally and the duct was transected. In similar fashion the cystic artery was skeletonized clipped and divided. There was a posterior branch of the artery that was clipped and divided as well. The gallbladder was removed from the gallbladder fossa using cautery. It was placed into an Endo Catch bag and removed from the camera port site. Any small bleeding points on the gallbladder fossa were controlled using cautery. Thorough irrigation of the entire upper abdomen was performed. At the end of the procedure there was adequate hemostasis and no evidence of any bile leaks. A quick look around the abdomen showed no other abnormalities. The trochars were all removed and the abdomen desufflated. The fascia of the umbilical hernia was closed using #1 Ethibond in simple interrupted fashion. The umbilical stalk was reattached using 0 Vicryl. All the wounds were irrigated. The hernia incision was closed using 3-0 Vicryl for deep layers and 4-0 Monocryl for skin. The remainder of the trocar sites were closed using 4-0 Monocryl. Marcaine with epinephrine were injected around them and Dermabond glue was used as a dressing. Patient was awakened and transferred to the [facility] recovery room where he was extubated. My physician orthopedic assistant was present through the entire case was instrumental in prepping the patient running the camera as well as assisting with exposure wound closure and dressing placement. I attest to the content of the Intraoperative Record and any orders documented therein. Any exceptions are noted below.
[2021-09-15] MEDS ORDERED: HYDROmorphone INJ 2 MG/ML SYR/VIAL ONE (18:12)
[2021-09-15] MEDS: fentaNYL citrate 100 MCG/2 ML VIAL IV PRN ×3 (18:21→18:47)
[2021-09-15] MEDS ORDERED: DROPERIDOL 5 MG/2 ML VIAL IV STA (18:34)
--- NOTE | 2021-09-15 19:09 | Anesthesiology Progress Note ---
Date of Service September 15, 2021 Anesthesia Post Procedure Vital Signs Vital Signs: Temp Pulse Pulse Pulse Resp BP BP 09/15/21 19:00 36.3 C L 60 18 09/15/21 18:50 62 17 09/15/21 18:40 61 15 09/15/21 18:30 58 L 13 09/15/21 18:20 54 L 16 09/15/21 18:10 55 L 16 09/15/21 18:01 36.0 C L 64 20 09/15/21 16:25 54 L 16 150/100 H 09/15/21 15:45 36.5 C 59 L 17 159/105 H 09/15/21 15:09 54 L 16 142/97 H 09/15/21 13:12 76 16 122/76 09/15/21 11:39 53 L 18 134/83 09/15/21 09:35 96 H 18 145/95 H 09/15/21 09:09 69 20 169/114 H BP Pulse Ox O2 Del Method O2 Flow Rate 09/15/21 19:00 119/84 92 Room Air 09/15/21 18:50 132/75 95 Room Air 09/15/21 18:40 133/85 96 Room Air 09/15/21 18:30 131/81 100 Oxymask 4 09/15/21 18:20 137/89 98 Oxymask 4 09/15/21 18:10 134/76 100 Oxymask 9 09/15/21 18:01 153/92 H 100 Oxymask 9 09/15/21 16:25 96 Room Air 09/15/21 15:45 94 Room Air 09/15/21 15:09 96 Room Air 09/15/21 13:12 95 09/15/21 11:39 95 Room Air 09/15/21 09:35 96 Room Air 09/15/21 09:09 95 Pain Intensity Upper Abdomen: Pain Intensity: 2 Abdomen: Pain Intensity: 2 Transfer of Care Handoff Completed per policy Notes Mental Status: alert / awake / arousable Patient Amnestic to Procedure: Yes Nausea / Vomiting: adequately controlled Pain: adequately controlled Airway Patency, RR, SpO2: stable & adequate BP & HR: stable & adequate Hydration State: stable & adequate Anesthetic Complications: no major complications apparent and Pt Satisfied with anesthetic care
[2021-09-15] MEDS ORDERED: hydrALAZINE HCL 20 MG/ML VIAL IV PRN (19:34)
[2021-09-15] MEDS ORDERED: IBUPROFEN 600 MG TAB PO PRN (19:34)
[2021-09-15] MEDS ORDERED: oxyCODONE HCL IR 5 MG TAB (IMMEDIATE RELEASE) PO PRN ×2 (19:34)
[2021-09-15] MEDS ORDERED: MoRPHine SULFATE 2 MG/ML CARP IV PRN (19:34)
[2021-09-15] MEDS ORDERED: MoRPHine SULFATE 4 MG/ML 1 ML CARP\\VIAL IV PRN (19:34)
[2021-09-15] MEDS: ACETAMINOPHEN 1000 MG/100 ML IV IV SCH (23:03)
[2021-09-16] MEDS: ACETAMINOPHEN 1000 MG/100 ML IV IV SCH ×2 (05:25→14:21)
[2021-09-16] MEDS ORDERED: ATORVASTATIN 40 MG TAB PO SCH (09:00)
[2021-09-16] MEDS ORDERED: allopurinoL 100 MG TAB PO SCH (09:00)
--- NOTE | 2021-09-16 10:06 | Surgery Progress Note ---
Date of Service September 16, 2021 Assessment & Plan (1) Acute cholecystitis: Plan: POD 1 lap manny, COVID + asymptomatic tolerating diet respiratory status stable ok for d/c Admission and Anticipated Discharge Date Admission Date: September 15, 2021 Subjective had two breakfasts, minimal pain Physical Exam Constitutional: WD/WN, vitals as above Respiratory: normal respiratory effort, lungs clear to auscultation Gastrointestinal (Abdomen): Inspection/Auscultation: + abdominal surgical incision (dry, some echymosis of at umbilical); abdomen not distended Percussion/Palpation: abdomen soft Results & Data ([facility]) Vital Signs (Past 12 Hours) Vital Signs Temp Pulse Resp BP Pulse Ox O2 Del Method 09/16/21 08:45 36.7 C 68 16 123/69 98 Room Air 09/16/21 04:18 36.6 C 67 16 128/80 97 Room Air 09/15/21 22:30 64 16 126/81 96 Room Air PG Care Time/CCT Total # of Minutes Spent Total Time Spent with Patient: Total time spent is greater than 50% in coordination of care (as documented) at patient's floor/unit and/or counseling patient: Coding Level of Care Code None Diagnoses Acute cholecystitis K81.0
--- NOTE | 2021-09-16 11:03 | Discharge Summary ---
Date of Service September 16, 2021 Admission HPI Per Admitting Provider 55 y/o male had pasta with jocelyn sauce last night and woke up this morning with severe RUQ pain and N/V. Was brought to ER by EMS. Has been given 12 mg morphine, continues to have some RUQ pain. Screening for COVID was positive although he has been asymptomatic. Principal Diagnosis 1. Acute/chronic cholecystitis 2. COVID (+), asymptomatic Discharge Exam Constitutional WD/WN, vitals as above Respiratory normal respiratory effort, lungs clear to auscultation Gastrointestinal (Abdomen) Inspection/Auscultation: + abdominal surgical incision (dry, mild ecchymosis umbilical incision) Percussion/Palpation: abdomen soft Discharge Data Allergies Allergy/AdvReac Type Severity Reaction Status Date / Time Penicillins AdvReac Verified 09/15/21 19:13 Procedures Performed Operation Date: 09/15/21 07:00 Actual Procedures p Laparoscopic Cholecystectomy and (Not Applicable) - Oneal Cook DO s Umbilical Hernia Repair(Not Applicable) - Oneal Cook DO Ordered Studies 09/15/21 09:19 CT abd pelvis IV con only Stat CT angio chest PE protocol Stat 09/15/21 11:51 US gallbladder Stat Hospital Course (1) Acute cholecystitis: 55 y/o presented to the ER with RUQ abdominal pain. White count was normal but CT was consistent with acute cholecystitis. COVID screen was positive although he was asymptomatic. Due to persistent symptoms he was taken to the operating room for laparoscopic cholecystectomy and transferred to the surgical floor for overnight observation. In the morning he was able to tolerate regular diet and oral analgesics. His respiratory status remained stable. He was stable for discharge home. Total Time Total Time Spent Total Time Spent (In Minutes): 15 Discharge Plan Discharge Items Patient Disposition: Home - Self-Care Reason For Visit: AB PAIN Discharge Diagnosis: laparoscopic cholecystectomy Activity: As commented below Lifting: No more than 10 pounds Bathing Comment: ok to shower over skin glue Exercise/Sports: Wait until after follow-up appointment Driving/Machine Use: no driving while taking any narcotics for pain Non-emergency contact: Surgeon Call non-emergency contact if: you have any medication questions, your pain is not controlled, your temperature is above 101, your temperature is above 101.5 and your wound has increased redness Follow-up/Referrals: Oneal Cook, DO [Surgeon] - 09/29/21 9:45 am (Please call to make an appt in 2-3 weeks) PCP,NO [Physician] - Diet: Regular Addtl Attending Provider Instructions: Should have coffee brought to you in bed every morning Pending Studies at Discharge: No Stand-Alone Forms: My [facility] Medications and DC Order Prescriptions: New oxycodone-acetaminophen [Percocet] 5-325 mg tablet 1 - 2 tab PO Q4H PRN (Reason: pain, initial therapy, max 6 daily) Qty: 15 0RF Continued allopurinol 100 mg tablet 100 mg PO DAILY atorvastatin 40 mg tablet 40 mg PO DAILY Discharge Orders: Discharge Order (Routine); Ordered 09/16/21 Ordered By: Jason Asencio/Other Patient Handouts: COVID-19 Home Care Admission Data Admit Date/Time: 09/15/21 18:03 Attending Provider: Oneal Cook Admit Provider: Oneal Cook Primary Care Provider: Grant Jesus Coding Level of Care Code D/C DAY MANAGEMENT <30 MINS Diagnoses Acute cholecystitis K81.0
== END 2021-09-16 15:47 | disposition home or self-care (01) ==
LOC: ED 09:02 → 3W 16:35 → OR 16:35
DX: Z79.899 Other long term (current) drug therapy; K80.12 Calculus of gallbladder with acute and chronic cholecystitis without obstruction; Z87.891 Personal history of nicotine dependence; K42.9 Umbilical hernia without obstruction or gangrene; U07.1 COVID-19